=== PATIENT | female | born 1965 | race Caucasian/White ===

== ENCOUNTER 2020-01-16 11:21 | Outpatient (REF) | payer MEDICAID, SELFPAY ==
--- NOTE | 2020-01-16 | US_ITS ---
EXAMINATION: US DIAGNOSTIC ULTRASOUND BREAST, LEFT CLINICAL INFORMATION: Probable benign hypoechoic nodule anterior 11:00 left breast, likely complicated cyst with apocrine metaplasia. COMPARISON: Mammography 05/18/2019, ultrasound left breast 05/27/2019. TECHNIQUE: Targeted ultrasound left breast is performed using grayscale imaging and color Doppler without and with harmonics. Imaging performed at the anterior upper inner breast. FINDINGS: The small hypoechoic nodule with circumscribed margins is slightly decreased in size currently measuring 6 x 5 x 4 mm. Prior measurements are 7 x 7 x 6 mm. Again, there is some peripheral internal echogenicity without peripheral and internal color flow. There is no posterior increased or decreased through transmission of sound. The appearance is suggestive of cyst with apocrine metaplasia. There is no interval suspicious change. No new finding on targeted ultrasound. Results are discussed with the patient at time of visit. Management plan is for targeted left breast ultrasound at time of annual bilateral mammography, due in 6 months. IMPRESSION: Probable benign complicated cyst with apocrine metaplasia anterior 11:00 position slightly decreased in size. No associated color flow. ASSESSMENT: BI-RADS 3: Probably Benign RECOMMENDATION: Targeted left breast ultrasound at time of annual bilateral mammography, due in 6 months. This patient's information was entered into a reminder system with a target due date for their next mammogram.
== END 2020-01-16 11:22 | disposition home or self-care (01) ==
LOC: HO.MAMMO 11:21
PROVIDERS: PCP Internal Medicine; Visit Provider Internal Medicine
DX: R92.8 Other abnormal and inconclusive findings on diagnostic imaging of breast (principal)
CPT/HCPCS: 76642

== ENCOUNTER 2020-07-12 12:53 | Outpatient (REF) | payer MEDICAID, SELFPAY ==
--- NOTE | ~2020-07-12 | MM_ITS ---
EXAMINATION: MM DIAGNOSTIC DIGITAL BREAST TOMOSYNTHESIS, BILATERAL TARGETED LEFT BREAST ULTRASOUND CLINICAL INFORMATION: Six-month follow up left breast density. The lifetime risk of breast cancer based on the Tyrer-Cuzick Model is 8.8%. COMPARISON: Mammography: 01/16/2020 and studies dating back to 05/18/2019. TECHNIQUE: Digital breast tomosynthesis is performed in both the craniocaudal and mediolateral oblique views along with computer-aided detection (CAD). Synthesized 2D images are generated from the tomosynthesis. Targeted left breast ultrasound. FINDINGS: There are scattered areas of fibroglandular density (ACR BI-RADS breast composition Category b). There is a stable parenchymal pattern to the right breast with no new abnormal dominant masses or new suspicious grouping of microcalcifications identified. There are multiple circumscribed densities seen about the anterior and lateral aspects of the left breast with previously noted well-circumscribed nodule anterior aspect measuring approximately 9 x 8 mm in size. Targeted left breast ultrasound was performed. The previously noted circumscribed heterogeneous structure with appearance of complex cyst is again seen 11 o'clock position 5 cm from nipple measuring approximately 8 x 8 x 7 mm in size where previously after remeasuring in the same dimensions it is seen to measure approximately 8 x 7 x 7 mm in size. The lesion is avascular without distal sound shadowing and no significant sound enhancement. There is slight change in distribution of soft tissue density/debris within the lesion compared to previous study. There are a few simple and mildly complex cysts present about the lateral and upper outer quadrant. At the 2 o'clock position 5 cm from nipple there is a 6 x 6 mm hypoechoic circumscribed lesion which was not imaged on prior study. This is avascular with question mild posterior enhancement and no sound shadowing. This likely represents a complex cyst or solid structure such as a fibroadenoma. Six-month follow-up ultrasound examination of the left breast is recommended to ensure stability. Results are provided to the patient at time of visit by the technologist. MM/MM tomosynthesis diagnostic BI IMPRESSION: No significant change of left breast complex cystic lesion 11 o'clock position 5 cm from nipple. Multiple simple or minimally complex cysts about the superior and lateral aspect of the left breast. At the 2 o'clock position 5 cm from the nipple there is either a complex cyst or solid structure such as fibroadenoma which is likely benign in characteristics. ASSESSMENT: BI-RADS 3: Probably Benign. RECOMMENDATION: Diagnostic left breast ultrasound in 6 months. This patient's information was entered into a reminder system with a target due date for their next mammogram.
--- NOTE | ~2020-07-12 | US_ITS ---
EXAMINATION: US DIAGNOSTIC ULTRASOUND BREAST, LEFT CLINICAL INFORMATION: Circumscribed densities left breast.. COMPARISON: January 16, 2020 and May 27, 2019. TECHNIQUE: Ultrasound of the breast is performed with real-time kolb scale imaging and color Doppler. FINDINGS: Targeted left breast ultrasound was performed. The previously noted circumscribed heterogeneous structure with appearance of complex cyst again seen 11:00 position 5 cm from nipple is an approximately 8 x 8 x 7 mm in size where previously after remeasuring the same dimensions is seen to measure approximately 8 x 7 x 7 mm in size. The lesion is avascular without distal sound shadowing and no significant sound enhancement. There is slight change in distribution of soft tissue density/debris within the lesion compared to previous study. There are a few cysts and mildly complex cysts present about the lateral and upper outer quadrant at the 2:00 position 5 cm from nipple there is a 6 x 6 mm hypoechoic circumscribed lesion which was not imaged on prior study. This is avascular with question mild posterior enhancement and no sound shadowing. This likely represents a complex cyst or solid structure such as a fibroadenoma.. 6 month follow-up ultrasound examination of the left breast is recommended to ensure stability. Results are provided to the patient at time of visit by the technologist. US/US breast LT limited IMPRESSION: No significant change of left breast complex cyst lesion 11:00 position 5 cm from nipple. Multiple simple or minimally complex cysts about the superior lateral aspect of the left breast. At the 2:00 position 5 cm from the nipple there is either a complex cyst or solid structure such as a fibroadenoma which is likely benign in characteristics. ASSESSMENT: BI-RADS 3: Probably Benign RECOMMENDATION: Diagnostic left breast ultrasound in 6 months
== END 2020-07-12 12:54 | disposition home or self-care (01) ==
LOC: HO.MAMMO 12:53
PROVIDERS: Visit Provider Internal Medicine
DX: N60.02 Solitary cyst of left breast (principal)
CPT/HCPCS: 76642; 77062; 77066

== ENCOUNTER 2021-01-11 13:16 | Outpatient (REF) | payer OTHER, SELFPAY ==
--- NOTE | ~2021-01-11 | US_ITS ---
EXAMINATION: US DIAGNOSTIC ULTRASOUND BREAST, LEFT CLINICAL INFORMATION: Complicated cysts for follow-up imaging left o'clock left breast. COMPARISON: Mammography 05/18/2019 and 07/12/2020; targeted left breast ultrasound 05/27/2019, 01/16/2020, 9 07/12/2020. TECHNIQUE: Ultrasound left breast is targeted to the anterior superior breast. Grayscale imaging and color Doppler are performed without and with harmonics. FINDINGS: The complicated cyst for follow-up left 11:00 position 5 cm from nipple is similar in size, measuring under 1 cm. There is focal peripheral geographic internal echogenicity. The cyst wall is poorly defined at the interface with the internal echogenicity and with question of extracystic extension. There is no posterior shadowing and no peripheral or internal color flow. No flow on power doppler. Nevertheless, the features may suggest papilloma. Ultrasound-guided core sampling is therefore recommended. Results are discussed with the patient at time of visit, using an deaf interpreter. Results and recommendation are called to medical transcription supervisor (Ailin) for provider Cristina Medrano CNP on 01/11/2021. US/US breast LT limited IMPRESSION: Although the complicated cyst is similar in size and there is no associated color flow, there is peripheral geographic internal echogenicity with ill-defined interface with the cyst wall. The possibility of papilloma cannot be excluded. ASSESSMENT: BI-RADS 4: Suspicious (subcategory 4A: Low suspicion for malignancy) RECOMMENDATION: Ultrasound-guided core sampling complicated cyst left breast anterior 11:00 position. This patient's information was entered into a reminder system with a target due date for their next mammogram.
== END 2021-01-11 13:17 | disposition home or self-care (01) ==
LOC: HO.MAMMO 13:16
PROVIDERS: PCP Nurse Practitioner Family; Visit Provider Nurse Practitioner Family
DX: N60.02 Solitary cyst of left breast (principal)
CPT/HCPCS: 76642

== ENCOUNTER 2021-02-06 09:27 | Outpatient (REF) | payer OTHER, SELFPAY ==
--- NOTE | ~2021-02-06 | MM_ITS ---
PROCEDURE: US GUIDED BREAST BIOPSY, LEFT CLINICAL INFORMATION: Complicated cyst COMPARISON: January 11, 2021 and July 12, 2020 as well as dating back to May 27, 2019 PROCEDURAL DETAILS: The details of the procedure, as well as the risks, benefits, and alternatives to the procedure were explained to the patient in detail and all of her questions were answered, after which written informed consent was obtained. Site and side were confirmed. Prior to the procedure, sonography revealed a complex cyst with soft tissue component which appears to extend deep to the cyst 11:00 position 5 cm from the nipple.. A time-out was performed, the lesion intended for biopsy was targeted, and the skin of the left breast was then prepped and draped in the usual sterile fashion. Using sonographic guidance, sterile technique, and 1% lidocaine without epinephrine for local anesthesia, multiple automated core biopsies were obtained through the targeted area with a 14G spring loaded Achieve core biopsy device. There was real-time confirmation of appropriate needle passage. Sampling was documented. At the completion of tissue sampling, a single butterfly-shaped metallic clip was deposited at the biopsy site. There was no evidence of immediate complication. SPECIMEN: An appropriate sample was obtained. DIGITAL POST-PROCEDURE MAMMOGRAPHY: Breast density: The tissue contains scattered areas of fibroglandular density. BI-RADS version 5, category B. There are no new mammographic findings demonstrated. The postprocedure 2-view direct digital mammogram reveals satisfactory positioning of the biopsy clip. The patient tolerated the procedure well and, after assuring adequate hemostasis, was discharged in good condition after reviewing postbiopsy breast care instructions. Final pathology results are pending. MM/MM diagnostic mammo unilat LT IMPRESSION: 1. No immediate complication from ultrasound-guided percutaneous biopsy left breast. 2. Ultrasound was used to localize and guide marker clip placement. 3. The 2-view direct digital postprocedure mammogram reveals satisfactory positioning of the biopsy clip. 4. Final pathology results are pending. A separate report with final recommendations will be issued once these results are made available.
[2021-02-06] MEDS: Lidocaine HCl 1 % 20 ML VIAL 6 ML SUBCUT (10:54)
== END 2021-02-06 09:28 | disposition home or self-care (01) ==
LOC: HO.MAMMO 09:27
PROVIDERS: Visit Provider Surgery
DX: N60.02 Solitary cyst of left breast (principal)
CPT/HCPCS: 19083; 77065; 88305; 99202

== ENCOUNTER → 2021-02-13 15:00 | Outpatient (BNVA) | payer OTHER, SELFPAY | PROVIDERS: PCP Nurse Practitioner Family; Referring Provider Nurse Practitioner Family; Visit Provider Surgery | DX: N60.02 Solitary cyst of left breast (principal) | CPT/HCPCS: 99212 ==

== ENCOUNTER 2022-08-09 08:07 | Outpatient (REF) | payer OTHER, SELFPAY ==
--- NOTE | ~2022-08-09 | MM_ITS ---
EXAMINATION: MM SCREENING DIGITAL BREAST TOMOSYNTHESIS, BILATERAL CLINICAL INFORMATION: Screening. Asymptomatic. Benign left breast ultrasound-guided biopsy 02/06/2021 (benign breast tissue with ruptured cyst and associated stromal inflammatory changes; background fibrocystic changes; usual ductal hyperplasia; columnar cell change; microcalcifications; no atypia or malignancy). The lifetime risk of breast cancer based on the Tyrer-Cuzick Model is 7%. COMPARISON: Mammography: 02/06/2021, 07/12/2020, 05/18/2019 (new baseline); ultrasound-guided left breast biopsy 02/06/2021, left breast ultrasound 01/11/2021, 07/12/2020, 01/16/2020, 05/27/2019. TECHNIQUE: Digital breast tomosynthesis is performed in both the craniocaudal and mediolateral oblique views along with computer-aided detection (CAD). Synthesized 2D images are generated from the tomosynthesis. FINDINGS: There are scattered areas of fibroglandular density (ACR BI-RADS breast composition Category b). There is denser breast tissue composition in the bilateral anterior breasts similar to prior studies. There are no significant masses, abnormal calcifications, or other abnormalities. Parenchymal pattern is similar to prior studies. There is no developing density or architectural abnormality. There is a biopsy clip marker anterior 11:00 left breast. The axilla and skin contours are unremarkable. No significant changes. MM/MM tomosynthesis screening BI IMPRESSION: No mammographic evidence of malignancy. ASSESSMENT: BI-RADS 2: Benign RECOMMENDATION: Routine annual mammography screening. This patient's information was entered into a reminder system with a target due date for their next mammogram.
== END 2022-08-09 08:08 | disposition home or self-care (01) ==
LOC: HO.MAMMO 08:07
PROVIDERS: PCP Internal Medicine; Visit Provider Internal Medicine
DX: Z12.31 Encounter for screening mammogram for malignant neoplasm of breast (principal)
CPT/HCPCS: 77063; 77067

== ENCOUNTER 2023-09-11 09:04 | Outpatient (REF) | payer OTHER, SELFPAY ==
--- NOTE | ~2023-09-11 | MM_ITS ---
EXAMINATION: MM SCREENING DIGITAL BREAST TOMOSYNTHESIS, BILATERAL CLINICAL INFORMATION: Screening. Asymptomatic. COMPARISON: Mammography: This study is compared with prior exams dating back to 2020. TECHNIQUE: Digital breast tomosynthesis is performed in both the craniocaudal and mediolateral oblique views along with computer-aided detection (CAD). Synthesized 2D images are generated from the tomosynthesis. FINDINGS: There are scattered areas of fibroglandular density (ACR BI-RADS breast composition Category b). There are no significant masses, abnormal calcifications, or other abnormalities. There is a biopsy tissue marker in the left breast. MM/MM tomosynthesis screening BI IMPRESSION: No mammographic evidence of malignancy. ASSESSMENT: BI-RADS BI-RADS 2 - Benign Findings RECOMMENDATION: Routine annual mammography screening. 1 year F/U This examination should not preclude the clinical evaluation of a suspicious palpable abnormality. This patient's information was entered into a reminder system with a target due date for their next mammogram.
== END 2023-09-11 09:05 | disposition home or self-care (01) ==
LOC: HO.MAMMO 09:04
PROVIDERS: PCP Internal Medicine; Visit Provider Internal Medicine
DX: Z12.31 Encounter for screening mammogram for malignant neoplasm of breast (principal)
CPT/HCPCS: 77063; 77067

== ENCOUNTER → 2023-09-11 09:15 | Outpatient (BNV) | payer OTHER, SELFPAY | PROVIDERS: PCP Internal Medicine; Visit Provider Radiology Diagnostic Radiology | DX: Z12.31 Encounter for screening mammogram for malignant neoplasm of breast (principal) | CPT/HCPCS: 77063; 77067 ==

== ENCOUNTER 2024-10-26 08:49 | Outpatient (REF) | payer OTHER, SELFPAY ==
--- OUTSIDE RECORDS SUMMARY | 2024-10-26 09:00 | XMS_ITS | Clinical Summary ---
Author Organization [facility] Address [address] [place] [address] Care Team Providers Care Motorcycle Technician Name Role Phone Luz Marina Solorzano MD Primary Care Provider + Allergies No known active allergies Medications Medication Sig Dispensed Refills Start Date End Date Status NIFEdipine (PROCARDIA XL) 30 MG 24 hr tablet Take 1 tablet (30 mg total) by mouth daily. 0 Active levothyroxine (SYNTHROID, LEVOXYL) tablet 50 mcg Take 1 tablet (50 mcg total) by mouth every morning on an empty stomach. 0 Active fluticasone (FLONASE) 50 MCG/ACT nasal spray spray/apply 1 spray in each nostril daily. 0 Active aspirin EC 81 MG tablet Take 1 tablet (81 mg total) by mouth daily. 0 Active atorvastatin (LIPITOR) tablet 20 mg Take 1 tablet (20 mg total) by mouth daily. 0 Active cholecalciferol (VITAMIN D3) 1000 units tablet Take 1 tablet (1,000 Units total) by mouth daily. 0 Active gabapentin (NEURONTIN) 100 MG capsule Take 8 capsules (800 mg total) by mouth 3 (three) times a day. 0 Active fexofenadine (HM FEXOFENADINE HCL) 180 MG tablet Take 1 tablet (180 mg total) by mouth daily. 0 Active simvastatin (ZOCOR) tablet 20 mg Take 1 tablet (20 mg total) by mouth every night at bedtime. 0 Active omeprazole (PriLOSEC) 20 MG capsule Take 1 capsule (20 mg total) by mouth daily. 0 Active amLODIPine (NORVASC) tablet 5 mg Take 1 tablet (5 mg total) by mouth daily. 0 Active valsartan (DIOVAN) tablet 160 mg Take 1 tablet (160 mg total) by mouth daily. 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 Social History Tobacco Use Types Packs/Day Years Used Date Smoking Tobacco: Never Smokeless Tobacco: Never Tobacco Cessation:Counseling Given: Not Answered Alcohol Use Standard Drinks/Week Comments No 0 (1 standard drink = 0.6 oz pur e alcohol) Sex and Gender Information Value Date Recorded Sex Assigned at Female 04/23/2023 2:35 PM EST Gender Identity Not on file Sexual Orientation Not on file Job Start Date Occupation Industry Not on file Not on file Not on file Last Filed Vital Signs Vital Sign Reading Time Taken Comments Blood Pressure 145/62 08/19/2023 9:02 AM EDT Pulse 71 08/19/2023 9:02 AM EDT Temperature 36.5 C (97.7 F) 08/19/2023 9:02 AM EDT Respiratory Rate - - Oxygen Saturation 97% 08/19/2023 9:02 AM EDT Inhaled Oxygen Concentration - - Weight 137 kg (302 lb) 08/19/2023 9:02 AM EDT Height 172.7 cm (5' 8 ) 08/19/2023 9:02 AM EDT Body Mass Index 45.92 08/19/2023 9:02 AM EDT Plan of Treatment Health Maintenance Due Date Last Done Comments Hepatitis C Screening 1965 Depression Screening 1976 Preventative Health Evaluation 02/13/1982 DTap / Tdap / Td (1 - Tdap) 02/13/1983 Cervical Cancer Screening (Pap Smear) 02/13/1985 Colon Cancer Screening (Colonoscopy) 02/13/2009 Breast Cancer Screening (Mammogram) 02/13/2014 COVID-19 Vaccine ( season) 2023 06/21/2021, 09/02/2020, 08/12/2020 RSV Adult > 60+ Yrs or (1 - Risk 60-74 years 1-dose series) 2024 Influenza Vaccine (#1) 2024 4, 05/03/2021, 05/26/2019, Additional history exists Shingrix-Zoster Vaccine Completed 05/26/2019, 03/22 Pneumococcal Vaccine Completed 10/13/2022 Hepatitis B Vaccines Aged Out No long er eligible based on patient's age to complete this topic RSV Ped < 20 months Aged Out No longe r eligible based on patient's age to complete this topic Care Teams Motorcycle Technician Relationship Specialty Start Date End Date Luz Marina Solorzano MD [address] [place] [id number] PCP - General Internal Medicine 04/23/23
--- OUTSIDE RECORDS SUMMARY | 2024-10-26 09:00 | XMS_ITS | Encounter Summary ---
Author Organization [email or web address] Address [address] [place] [address] [address] [place] [address] Care Team Providers Care Design Manager Name Role Phone Unavailable Primary Care Provider Unavailabl e Reason for Visit * Reason Comments Med Refill Encounter Details Date Type Department Care Team (Late st Contact Info) Description 05/22/2024 Refill [facility] [address] [place] [address] Eliseo Warren MD [address] [place] [address] Chronic rhinitis Social History Tobacco Use Types Packs/Day Years Used Date Smoking Tobacco: Never Assessed Comments Unknown Sex and Gender Information Value Date Recorded Sex Assigned at Female 02/10/2022 10:30 AM EDT Legal Sex Female 10:30 AM EDT Gender Identity Not on file Sexual Orientation Not on file documented as of this encounter Plan of Treatment Not on file documented as of this encounter Visit Diagnoses Diagnosis Chronic rhinitis documented in this encounter
--- OUTSIDE RECORDS SUMMARY | 2024-10-26 09:00 | XMS_ITS | Clinical Summary ---
Author Organization [facility] [address] [facility] Address [address] [place] [address] Phone Care Team Providers Care Recreation Program Coordinator Name Role Phone Luz Marina Solorzano MD Primary Care Provider + Allergies No known active allergies Medications dicyclomine (BENTYL) 10 mg capsule TAKE 1 CAPSULE BY MOUTH 3 TIMES A DAY WITH MEALS 270 capsule 1 4 Active Ozempic 0.25 mg or 0.5 mg (2 mg/3 mL) injection pen 0.5 MG SUBCUTANEOUS INJECTION EVERY WEEK,INSTR:ROTAT E INJECTION SITES 4 Active aspirin 81 mg EC tablet Take 1 tablet (81 mg total) by mouth 1 (one) time each day. Active atorvastatin (LIPITOR) 20 mg tablet Take 1 tablet (20 mg total) by mouth 1 (one) time each day. Active cholecalciferol (VITAMIN D-3) 25 mcg (1,000 unit) tablet Take 1 tablet (1,000 Units total) by mouth 1 (one) time each day. Active fexofenadine (VITO) 180 mg tablet Take 1 tablet (180 mg total) by mouth 1 (one) time each day. Active fluticasone propionate (FLONASE) 50 mcg/actuation nasal spray Administer 1 spray into each nostril 1 (one) time each day. Active gabapentin (NEURONTIN) 100 mg capsule Take 1 capsule (100 mg total) by mouth 3 (three) times a day. Active levothyroxine (SYNTHROID, LEVOTHROID) 50 mcg tablet Take 1 tablet (50 mcg total) by mouth every morning on an empty stomach. Active NIFEdipine XL (PROCARDIA XL) 30 mg 24 hr tablet Take 1 tablet (30 mg total) by mouth 1 (one) time each day. Active omeprazole (PriLOSEC) [address] capsule Take 1 capsule (20 mg total) by mouth 1 (one) time each day. Active simvastatin (ZOCOR) 20 mg tablet Take 1 tablet (20 mg total) by mouth at bedtime. Active amLODIPine (NORVASC) 5 mg tablet Take 1 tablet (5 mg total) by mouth 1 (one) time each day. Active valsartan (DIOVAN) 160 mg tablet Take 1 tablet (160 mg total) by mouth 1 (one) time each day. Active metFORMIN XR (GLUCOPHAGE-XR) 500 mg 24 hr tablet Take 1 tablet (500 mg total) by mouth at bedtime. Active Active Problems Problem Noted Date Diagnosed Date Right upper quadrant pain 03/23/2024 Epigastric pain 03/23/2024 Calculus of gallbladder with out cholecystitis without obstruction 03/23/2024 Fatty liver 03/23/2024 Diabetes mellitus ([facility] V24, [facility] V28) 02/2024 Hypothyroid 03/23/2024 Other hyperlipidemia 03/23/2024 Recurrent sinus infections 06/08/2023 IgA deficiency ([facility] V24, [facility] V28) 2023 Immunizations Name Administration Dates Next Due [email or web address] (ages 12 & older) JERSON S-CoV-2 COVID-19, mRNA, LNP-S, derek-sucrose, preservative free 06/21/2021 [facility] SARS-CoV-2 COVID-19, mRNA, LNP-S, preservative free 06/21/2021,09/02/2020,08/12/2020 Surgical History Surgery Date Site/Laterality Comments THYROID SURGERY PROCEDURE:THYROID SURGERY TUBAL LIGATION PROCEDURE:TUBAL LIGATION Medical History Medical History Date Comments Iron (Fe) deficiency anemia DX:I suleiman (Fe) deficiency anemia Hypertension DX:Hypertension High cholesterol DX:High cholest merrill Social History Tobacco Use Types Packs/Day Years Used Date Smoking Tobacco: Never Smokeless Tobacco: Never Alcohol Use Standard Drinks/Week Comments No 0 (1 standard drink = 0.6 oz pur e alcohol) Comments Unknown Sex and Gender Information Value Date Recorded Sex Assigned at Not on file Legal Sex Female 9:38 AM EST Gender Identity Not on file Sexual Orientation Not on file Obstetrics History Last Filed Vital Signs Vital Sign Reading Time Taken Comments Blood Pressure 145/62 08/19/2023 9:02 AM EDT Sit ting Left arm Pulse 71 08/19/2023 9:02 AM EDT Temperature - - Respiratory Rate - - Oxygen Saturation - - Inhaled Oxygen Concentration - - Weight 130 kg (287 lb) 03/23/2024 8:44 AM EST Height 172.7 cm (5' 8 ) 03/23/2024 8:44 AM EST Body Mass Index 43.64 03/23/2024 8:44 AM EST Plan of Treatment Health Maintenance Due Date Last Done Comments Diabetes: Annual GFR (Glomerular Filtration Rate) 1964 Diabetes: Annual Foot Exam 02/13/1974 Diabetes: Annual Retina Eye Exam 02/13/1974 DTaP,Tdap,and Td Vaccines (1 - Tdap) 02/13/1983 Cervical Cancer Screening: Pap Smear 02/13/1985 Breast Cancer Screening 07/12/2022 07/12/2020 Cholesterol Screening (Lipid Panel) 05/12/2023 Depression Screening 05/12/2023 HIV Screening 05/12/2023 Hepatitis C Screening 05/12/2023 Social Influencers of Health Screening 05/12/2023 COVID-19 Vaccine ( season) 2023 06/21/2021, 06/21/2021, 09/02/2020, Additional history exists RSV Immunization Adult Patients (1 - Risk 60-74 years 1-dose series) 2024 Diabetes: Annual Urine Albumin-Creatinine Ratio (uACR) 03/23/2024 Diabetes: Blood Sugar Control Test (HGBA1C) 03/23/2024 Influenza Vaccine (#1) 2024 , 05/03/2021, 05/26/2019, Additional history exists Colorectal Cancer Screening: Colonoscopy 01/09/2033 01/09/2023, 02/16/2017 Zoster Vaccines Completed 05/26/2019, 03/22/2019 Pneumococcal Vaccine: 50+ Years Completed 10/13/2022 HIB Vaccines Aged Out No longer eligi ble based on patient's age to complete this topic HPV Vaccines Aged Out No longer eligi ble based on patient's age to complete this topic Hepatitis A Vaccines Aged Out No long er eligible based on patient's age to complete this topic Hepatitis B Vaccines Aged Out No long er eligible based on patient's age to complete this topic IPV Vaccines Aged Out No longer eligi ble based on patient's age to complete this topic MMR Vaccines Aged Out No longer eligi ble based on patient's age to complete this topic Meningococcal ACWY Vaccine Aged Out N o longer eligible based on patient's age to complete this topic Meningococcal B Vaccine Aged Out No l onger eligible based on patient's age to complete this topic RSV Immunization Patients Under 20 months Aged Out No longer eligible based on patient's age to complete this topic Varicella Vaccines Aged Out No longer eligible based on patient's age to complete this topic Procedures Procedure Name Priority Date/Time Associated Diagnosis Comments COLONOSCOPY Routine 01/09/2023 12:17 PM EDT from Last 3 Months or Most Recently Relevant to Health Maintenance Results * COLONOSCOPY (01/09/2023 12:17 PM EDT) Anatomical Region Laterality Modality Endoscopy us Historical Provider GI~PROCEDURE ORDERABLES E dited Result - Final from Last 3 Months or Most Recently Relevant to Health Maintenance Insurance [facility] Care Teams Recreation Program Coordinator Relationship Specialty Start Date End Date Luz Marina Solorzano MD [address] [place] [phone] PCP - General 04/23/23
== END 2024-10-26 08:50 | disposition home or self-care (01) ==
LOC: HO.MAMMO 08:49
PROVIDERS: PCP Internal Medicine; Visit Provider Internal Medicine
DX: Z12.31 Encounter for screening mammogram for malignant neoplasm of breast (principal)
CPT/HCPCS: 77063; 77067

== ENCOUNTER → 2024-10-26 09:00 | Outpatient (BNV) | payer OTHER, SELFPAY | PROVIDERS: PCP Internal Medicine; Visit Provider Radiology Body Imaging | DX: Z12.31 Encounter for screening mammogram for malignant neoplasm of breast (principal) | CPT/HCPCS: 77063; 77067 ==

== ENCOUNTER 2024-12-14 12:46 | Outpatient (REF) | payer OTHER, SELFPAY ==
--- NOTE | ~2024-12-14 | US_ITS ---
EXAMINATION: MM DIAGNOSTIC DIGITAL BREAST TOMOSYNTHESIS, RIGHT Limited right breast ultrasound. CLINICAL INFORMATION: Call back from screening for focal asymmetry in the upper central to slightly inner right breast. COMPARISON: Mammography: Priors on PACS. TECHNIQUE: Digital breast tomosynthesis is performed in both the craniocaudal and mediolateral oblique views along with computer-aided detection (CAD). Synthesized 2D images are generated from the tomosynthesis. FINDINGS: There are scattered areas of fibroglandular density (ACR BI-RADS breast composition Category b). Focal asymmetry in the upper central slightly inner breast middle to posterior depth persist on additional imaging projections with associated architectural distortion. No suspicious calcifications or other abnormal findings. Targeted color Doppler ultrasound scanning from 10-2 o'clock demonstrates normal fibronodular breast tissue. There is no sonographic abnormal finding to correlate with the focal asymmetry with associated distortion on mammography. US/US breast RT limited mamm only IMPRESSION: Focal asymmetry in the upper central slightly inner breast with associated architectural distortion without sonographic correlate. Recommend histology with stereotactic core needle biopsy at this time. The findings and recommendations were discussed with the patient the procedure will be scheduled. ASSESSMENT: BI-RADS BI-RADS 4 - Suspicious finding RECOMMENDATION: Biopsy recommended Results were discussed with the patient at time of visit. This patient's information was entered into a reminder system with a target due date for their next mammogram. Electronically signed by: Bethany Puckett DO 12/14/2024 03:28 PM EDT
--- OUTSIDE RECORDS SUMMARY | 2024-12-14 15:11 | XMS_ITS | Clinical Summary ---
Author Organization [employer] Address [address] [facility] 7t [place] [address] Care Team Providers Care Family Services Specialist Name Role Phone Unavailable Primary Care Provider Unavailabl e Medications fluticasone (Flonase) 50 MCG/ACT nasal sprayIndication s:Chronic rhinitis ADMINISTER 1 SPRAY INTO EACH NOSTRIL IN MORNING:SHAKE GENTLY: BEFORE FIRST USE, PRIME PUMP. AFTER USE, CLEAN TIP AND REPLACE CAP. 48 mL 3 3 Active pantoprazole (ProtoNix) 40 MG EC tablet TAKE 1 TABLET (40 MG) BY MOUTH IN THE MORNING DO NOT CRUSH, CHEW, OR SPLIT 90 tablet 1 3 Active Social History Tobacco Use Types Packs/Day Years Used Date Smoking Tobacco: Never Assessed Comments Unknown Sex and Gender Information Value Date Recorded Sex Assigned at Female 02/10/2022 10:30 AM EDT Legal Sex Female 10:30 AM EDT Gender Identity Not on file Sexual Orientation Not on file Last Filed Vital Signs Vital Sign Reading Time Taken Comments Blood Pressure 150/96 06/06/2019 12:02 AM EST Pulse 64 06/06/2019 12:02 AM EST Temperature - - Respiratory Rate - - Oxygen Saturation - - Inhaled Oxygen Concentration - - Weight 132 kg (290 lb 3.2 oz) 06/06/2019 12:02 A M EST Height 172.7 cm (5' 8 ) 06/06/2019 12:02 AM EST Body Mass Index 44.12 06/06/2019 12:02 AM EST Plan of Treatment Health Maintenance Due Date Last Done Comments CT Colonography 1964 Colonoscopy 1964 Colorectal Cancer Screening 1964 Depression Screening 1964 FIT DNA/Cologuard 1964 FIT 1964 FOBT 1964 HIV Screening 1964 Lipid Panel 1964 SDOH Screening 1964 Sigmoidoscopy 1964 Disability Screening 1964 Alcohol/Substance Use Screening 1976 Tobacco Screening 1976 Hepatitis C Screening 02/13/1982 Hepatitis A Vaccines (1 of 2 - Risk 2-dose series) 02/13/1983 Pap Smear 02/13/1985 Cervical Cancer Screening 02/13/1994 HPV/Cotest 02/13/1994 Mammogram 07/12/2022 07/12/2020, 02/0 09/2019, 05/19/2019 COVID-19 Vaccine ( season) 2023 06/21/2021, 09/02/2020, 08/12/2020 Hepatitis B Vaccines (1 of 3 - Risk 3-dose series) 2024 RSV Patients and Patients Aged 60 years or older (1 - Risk 60-74 years 1-dose series) 2024 Influenza Vaccine (#1) 2024 , 04/20/2023, 05/03/2021, Additional history exists DTaP/Tdap/Td Vaccines (2 - Td or Tdap) 07/03/2026 07/03/2016 Zoster Vaccines Completed 05/26/2019, 03/22/2019 Pneumococcal Vaccine: [...] patient's age to complete this topic Meningococcal Vaccine Aged Out No mary pantera eligible based on patient's age to complete this topic RSV under 20 months Aged Out No longe r eligible based on patient's age to complete this topic Rotavirus Vaccines Aged Out No longer eligible based on patient's age to complete this topic Procedures Procedure Name Priority Date/Time Associated Diagnosis Comments MAMMOGRAM GENERIC Routine 07/12/2020 1:0 0 PM EDT from Last 3 Months or Most Recently Relevant to Health Maintenance Results * Mammography Report 1 (07/12/2020 1:00 PM EDT) Anatomical Region Laterality Modality Breast Bilateral Mammography 07/12/2020 1:00 PM EDT Narrative 07/16/2020 2:33 PM EDT Refer to the Notes tab for result details [facility] Procedure: Mammography Report 1 Procedure Note Provider, MD Gabe - 07/05/2022 Refer to the Notes tab for result details [facility] Procedure: Mammography Report 1 Eliseo Terrell MD IMG BI PROCEDURES Final Result from Last 3 Months or Most Recently Relevant to Health Maintenance [place] [address] [address] C3
--- OUTSIDE RECORDS SUMMARY | 2024-12-14 15:11 | XMS_ITS | Clinical Summary ---
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[facility] V24, [facility] V28) 2023 Immunizations Name Administration Dates Next Due [employer] (ages 12 & older) JERSON S-CoV-2 COVID-19, mRNA, LNP-S, derek-sucrose, preservative free 06/21/2021 [facility] SARS-CoV-2 COVID-19, mRNA, LNP-S, preservative free [...] 07/12/2022 07/12/2020 Cholesterol Screening (Lipid Panel) 05/12/2023 HIV Screening 05/12/2023 Hepatitis C Screening 05/12/2023 Social Influencers of Health Screening 05/12/2023 COVID-19 Vaccine ( season) 2023 06/21/2021, 06/21/2021, 09/02/2020, Additional history exists RSV Immunization Adult Patients (1 - Risk 60-74 years 1-dose series) 2024 Diabetes: Annual Urine Albumin-Creatinine Ratio (uACR) 03/23/2024 Diabetes: Blood Sugar Control Test (HGBA1C) 03/23/2024 Depression Screening 04/13/2024 Influenza Vaccine (#1) 2024 , 05/03/2021, 05/26/2019, [...] Most Recently Relevant to Health Maintenance Insurance [facility] Care Teams Pizza Cook Relationship Specialty Start Date End Date Luz Marina Solorzano MD [address] [place] [phone] PCP - General 04/23/23
--- OUTSIDE RECORDS SUMMARY | 2024-12-14 15:11 | XMS_ITS | Encounter Summary ---
Author Organization [employer] Address [address] [place] [address] [address] [place] [address] Care Team Providers Care Spectrographer Name Role Phone Unavailable Primary Care Provider Unavailabl e Reason for Visit * Reason Comments Med Refill Encounter Details Date Type Department Care Team (Late st Contact Info) Description 10/31/2023 Refill [facility] MED & PEDS [address] [place] [address] Eliseo Warren MD [address] [place] [address] Chronic rhinitis Social History Tobacco Use Types [...]
--- OUTSIDE RECORDS SUMMARY | 2024-12-14 15:11 | XMS_ITS | Encounter Summary ---
Author Organization [employer] Address [address] [place] [address] 7 [place] [address] Care Team Providers Care Quality Assurance Qa Lab Analyst Name Role Phone Unavailable Primary Care Provider Unavailabl e Reason for Visit * Reason Comments Med Refill Encounter Details Date Type Department Care Team (Late st Contact Info) Description 05/22/2024 Refill [facility] CHC MED & PEDS [address] [place] [address] Eliseo Warren MD [address] [place] [address] Chronic rhinitis Social History Tobacco Use Types [...]
--- OUTSIDE RECORDS SUMMARY | 2024-12-14 15:11 | XMS_ITS | Encounter Summary ---
Author Organization [employer] Address [address] [place] [address] 7 [place] [address] Care Team Providers Care Green Building Materials Distributor Name Role Phone Unavailable Primary Care Provider Unavailabl e Reason for Visit * Reason Comments Med Refill Encounter Details Date Type Department Care Team (Late st Contact Info) Description 04/22/2024 Refill [facility] CHC MED & PEDS [address] [place] [address] Eliseo Warren MD [address] [place] [address] Chronic rhinitis Social History Tobacco Use Types [...]
--- OUTSIDE RECORDS SUMMARY | 2024-12-14 15:11 | XMS_ITS | Encounter Summary ---
Author Organization [employer] Address [address] [place] [address] 7 [place] [address] Care Team Providers Care Roll Forger Name Role Phone Unavailable Primary Care Provider Unavailabl e Reason for Visit * Reason Comments Med Refill Encounter Details Date Type Department Care Team (Late st Contact Info) Description 03/09/2024 Refill [facility] CHC MED & PEDS [address] [place] [address] Eliseo Warren MD [address] [place] [address] Chronic rhinitis Social History Tobacco Use Types [...]
--- OUTSIDE RECORDS SUMMARY | 2024-12-14 15:11 | XMS_ITS | Encounter Summary ---
Author Organization [employer] Address [address] [place] [address] 7 [place] [address] Care Team Providers Care Associate Director Of Sales Name Role Phone Unavailable Primary Care Provider Unavailabl e Reason for Visit * Reason Comments Med Refill Encounter Details Date Type Department Care Team (Late st Contact Info) Description 05/13/2023 Refill [facility] CHC MED & PEDS [address] [place] [address] Eliseo Warren MD [address] [place] [address] Social History Tobacco Use Types Packs/Day Years [...] documented as of this encounter Visit Diagnoses Not on filedocumented in this encounter
--- OUTSIDE RECORDS SUMMARY | 2024-12-14 15:11 | XMS_ITS | Clinical Summary ---
Author Organization [facility] Address [address] [place] [address] Care Team Providers Care Bridge Maintainer Name Role Phone Luz Marina Solorzano MD [...] age to complete this topic Care Teams Bridge Maintainer Relationship Specialty Start Date End Date Luz Marina Solorzano MD [address] [place] [phone] PCP - General Internal Medicine 04/23/23
--- OUTSIDE RECORDS SUMMARY | 2024-12-14 15:11 | XMS_ITS | Encounter Summary ---
Author Organization [employer] Address [address] [place] [address] 7 [place] [address] Care Team Providers Care Water/Wastewater Engineer Name Role Phone Eliseo Warren MD Primary Care Prov ider Reason for Visit * Reason Comments Med Refill Encounter Details Date Type Department Care Team (Late st Contact Info) Description 02/20/2023 Refill [facility] CHC MED & PEDS [address] [place] [address] Eliseo Warren MD [address] [place] [address] Social History Tobacco Use Types Packs/Day Years [...] Diagnoses Not on filedocumented in this encounter Care Teams Water/Wastewater Engineer Relationship Specialty Start Date End Date Eliseo Warren MD [address] [place] [address] PCP - General Internal Medicine 08/22/19 04/15/23 documented as of this encounter
--- OUTSIDE RECORDS SUMMARY | 2024-12-14 15:11 | XMS_ITS | Encounter Summary ---
Author Organization [employer] Address [address] [place] [address] [address] [place] [address] Care Team Providers Care Cnc Mill And Lathe Operator Name Role Phone Unavailable Primary Care Provider Unavailabl e Reason for Visit * Reason Comments Med Refill Encounter Details Date Type Department Care Team (Late st Contact Info) Description 09/02/2023 Refill [facility] MED & PEDS [address] [place] [address] Eliseo Warren MD [address] [place] [address] Chronic rhinitis Social History Tobacco Use Types [...]
== END 2024-12-14 12:47 | disposition home or self-care (01) ==
LOC: HO.MAMMO 12:46
PROVIDERS: PCP Internal Medicine; Visit Provider Internal Medicine
DX: R92.8 Other abnormal and inconclusive findings on diagnostic imaging of breast (principal)
CPT/HCPCS: 76642; 77061; 77065

== ENCOUNTER → 2024-12-14 13:00 | Outpatient (BNV) | payer OTHER, SELFPAY | PROVIDERS: PCP Internal Medicine; Visit Provider Internal Medicine | DX: R92.8 Other abnormal and inconclusive findings on diagnostic imaging of breast (principal); R92.321 Mammographic fibroglandular density, right breast | CPT/HCPCS: 76642; 77061; 77065 ==

== ENCOUNTER 2024-12-21 07:51 | Outpatient (REF) | payer OTHER, SELFPAY ==
--- NOTE | ~2024-12-21 | MM_ITS ---
EXAMINATION: STEREOTACTICALLY-GUIDED RIGHT BREAST BIOPSY CLINICAL INFORMATION: Right focal asymmetry with associated architectural distortion upper central breast. COMPARISON: [facility] on PACS. INFORMED CONSENT: After the details of the procedure, as well as the risks (including, but not limited to, bleeding, hematoma formation, and infection), benefits and alternatives (including doing nothing, short-interval follow up, and surgery) to the procedure were explained to the patient in detail and all of her questions were answered, informed written consent was obtained. TECHNIQUE/FINDINGS: A timeout was performed. The lesion intended for biopsy was identified stereotactically and targeted. The skin of the right breast was then cleansed with sterile solution. Using stereotactic guidance, aseptic technique, and 1% lidocaine with and without epinephrine for local anesthesia, a total of 12 cores were obtained through the targeted area with a 9-gauge vacuum-assisted Eviva core biopsy device from a superior approach. At the completion of tissue sampling, a single top hat-shaped metallic clip was deposited at the biopsy site. Adequate sampling was achieved. The postprocedure 2-view direct digital mammogram reveals satisfactory positioning of the biopsy clip. The patient tolerated the procedure well and, after assuring adequate hemostasis, was discharged in good condition after reviewing postbiopsy breast care instructions. Final pathology results are pending. MM/MM stereotactic biopsy RT IMPRESSION: 1. Uncomplicated stereotactically-guided core biopsy of the right breast. The 2-view direct digital postprocedure mammogram reveals satisfactory positioning of the biopsy clip. 2. Final pathology results are pending. A separate report with final recommendations will be issued once these results are made available. Electronically signed by: Bethany Puckett DO 12/21/2024 11:29 AM EDT
--- OUTSIDE RECORDS SUMMARY | 2024-12-21 07:53 | XMS_ITS | Encounter Summary ---
Author Organization [employer] Address [address] [place] [address] [address] [place] [address] Care Team Providers Care Stenographer Print Shop Name Role Phone Unavailable Primary Care Provider Unavailabl e Reason for Visit * Reason Comments Med Refill Encounter Details Date Type Department Care Team (Late st Contact Info) Description 05/22/2024 Refill [facility] CHC MED & PEDS [address] [place] [address] Eliseo Warren MD [address] [place] [address] Chronic rhinitis Social History Tobacco Use Types [...]
--- OUTSIDE RECORDS SUMMARY | 2024-12-21 07:53 | XMS_ITS | Clinical Summary ---
Author Organization [employer] Address [address] [facility] 7t [place] [address] Care Team Providers Care Asian Studies Program Chair Name Role Phone Unavailable Primary Care Provider [...] Screening 02/13/1994 HPV/Cotest 02/13/1994 Mammogram 07/12/2022 07/12/2020, 02/09/2019, 05/19/2019 Hepatitis B Vaccines (1 of 3 - Risk 3-dose series) 2024 RSV Patients and Patients Aged 60 years or older (1 - Risk 60-74 years 1-dose series) 2024 COVID-19 Vaccine (4 - season) 2024 06/21/2021, 09/02/2020, 08/12/2020 Influenza Vaccine (#1) 2024 , 04/20/2023, 05/03/2021, [...] Most Recently Relevant to Health [place] [address] [place] [address] C3
--- OUTSIDE RECORDS SUMMARY | 2024-12-21 07:53 | XMS_ITS | Encounter Summary ---
Author Organization [employer] Address [address] [place] [address] 7 [place] [address] Care Team Providers Care Chemotherapist Name Role Phone Unavailable Primary Care Provider Unavailabl e Reason for Visit * Reason Comments Med Refill Encounter Details Date Type Department Care Team (Late st Contact Info) Description 03/09/2024 Refill [facility] CHC MED & PEDS [address] [place] [address] Eliseo Warren MD [address] [place] [address] Chronic rhinitis Social History Tobacco Use Types [...]
--- OUTSIDE RECORDS SUMMARY | 2024-12-21 07:54 | XMS_ITS | Clinical Summary ---
Author Organization [facility] Address [address] [place] [address] Care Team Providers Care Fpga Engineer Name Role Phone Luz Marina Solorzano MD [...] (Colonoscopy) 02/13/2009 Breast Cancer Screening (Mammogram) 02/13/2014 RSV Adult > 60+ Yrs or (1 - Risk 60-74 years 1-dose series) 2024 COVID-19 Vaccine ( season) 2024 06/21/2021, 09/02/2020, 08/12/2020 Influenza Vaccine (#1) 2024 4, 05/03/2021, 05/26/2019, Additional history exists Shingrix-Zoster Vaccine Completed 05/26/2019, 03/22 Pneumococcal Vaccine Completed 10/13/2022 Hepatitis B Vaccines Aged Out No long er eligible based on patient's age to complete this topic RSV Ped < 20 months Aged Out No longe r eligible based on patient's age to complete this topic Care Teams Fpga Engineer Relationship Specialty Start Date End Date Luz Marina Solorzano MD [address] [place] [phone] PCP - General Internal Medicine 04/23/23
--- OUTSIDE RECORDS SUMMARY | 2024-12-21 07:54 | XMS_ITS | Clinical Summary ---
Author Organization [facility] [address] [facility] Address [address] [place] [address] Phone Care Team Providers Care Mold Stamper And Repairer Name Role Phone Luz Marina Solorzano MD [...] obstruction 03/23/2024 Fatty liver 03/23/2024 Diabetes mellitus ([facility] V24, [facility] V28) 02/2024 Hypothyroid 03/23/2024 Other hyperlipidemia 03/23/2024 Recurrent sinus infections 06/08/2023 IgA deficiency ([facility] V24, [facility] V28) 2023 Immunizations Name Administration Dates Next Due [employer] (ages 12 & older) JERSON S-CoV-2 COVID-19, mRNA, LNP-S, derek-sucrose, preservative free 06/21/2021 [facility] SARS-CoV-2 COVID-19, mRNA, LNP-S, preservative free [...] 05/12/2023 Social Influencers of Health Screening 05/12/2023 RSV Immunization Adult Patients (1 - Risk 60-74 years 1-dose series) 2024 Diabetes: Annual Urine Albumin-Creatinine Ratio (uACR) 03/23/2024 Diabetes: Blood Sugar Control Test (HGBA1C) 03/23/2024 Depression Screening 04/13/2024 COVID-19 Vaccine ( season) 2024 06/21/2021, 06/21/2021, 09/02/2020, Additional history exists Influenza Vaccine (#1) 2024 , 05/03/2021, 05/26/2019, [...] Most Recently Relevant to Health Maintenance Insurance [facility] Care Teams Mold Stamper And Repairer Relationship Specialty Start Date End Date Luz Marina Solorzano MD [address] [place] [phone] PCP - General 04/23/23
--- OUTSIDE RECORDS SUMMARY | 2024-12-21 07:54 | XMS_ITS | Encounter Summary ---
Author Organization [employer] Address [address] [place] [address] [address] [place] [address] Care Team Providers Care Mammal Keeper Name Role Phone Eliseo Warren MD Primary Care Prov ider Reason for Visit * Reason Comments Med Refill Encounter Details Date Type Department Care Team (Late st Contact Info) Description 02/20/2023 Refill [facility] MED & PEDS [address] [place] [address] Eliseo Warren MD [address] [place] [address] Social History Tobacco Use Types Packs/Day Years [...] on filedocumented in this encounter Care Teams Mammal Keeper Relationship Specialty Start Date End Date Eliseo Warren MD [address] [place] [address] PCP - General Internal Medicine 08/22/19 04/15/23 documented as of this encounter
--- OUTSIDE RECORDS SUMMARY | 2024-12-21 07:54 | XMS_ITS | Encounter Summary ---
Author Organization [employer] Address [address] [place] [address] [address] [place] [address] Care Team Providers Care Process Development Associate Name Role Phone Unavailable Primary Care Provider Unavailabl e Reason for Visit * Reason Comments Med Refill Encounter Details Date Type Department Care Team (Late st Contact Info) Description 05/13/2023 Refill [facility] MED & PEDS [address] [place] [address] Eliseo Warren MD [address] [place] [address] Social History Tobacco Use Types Packs/Day Years [...]
--- OUTSIDE RECORDS SUMMARY | 2024-12-21 07:54 | XMS_ITS | Encounter Summary ---
Author Organization [employer] Address [address] [place] [address] [address] [place] [address] Care Team Providers Care Bias Binding Folder Name Role Phone Unavailable Primary Care Provider Unavailabl e Reason for Visit * Reason Comments Med Refill Encounter Details Date Type Department Care Team (Late st Contact Info) Description 09/02/2023 Refill [facility] MED & PEDS [address] [place] [address] Eliseo Warren MD [address] [place] [address] Chronic rhinitis Social History Tobacco Use Types [...]
--- OUTSIDE RECORDS SUMMARY | 2024-12-21 07:54 | XMS_ITS | Encounter Summary ---
Author Organization [employer] Address [address] [place] [address] [address] [place] [address] Care Team Providers Care Topography Technician Name Role Phone Unavailable Primary Care Provider Unavailabl e Reason for Visit * Reason Comments Med Refill Encounter Details Date Type Department Care Team (Late st Contact Info) Description 10/31/2023 Refill [facility] CH[facility] MED & PEDS [address] [place] [address] Eliseo Warren MD [address] [place] [address] Chronic rhinitis Social History Tobacco Use Types [...]
--- OUTSIDE RECORDS SUMMARY | 2024-12-21 07:54 | XMS_ITS | Encounter Summary ---
Author Organization [employer] Address [address] [place] [address] [address] [place] [address] Care Team Providers Care Fire Dispatcher Name Role Phone Unavailable Primary Care Provider Unavailabl e Reason for Visit * Reason Comments Med Refill Encounter Details Date Type Department Care Team (Late st Contact Info) Description 04/22/2024 Refill [facility] CH[facility] MED & PEDS [address] [place] [address] Eliseo Warren MD [address] [place] [address] Chronic rhinitis Social History Tobacco Use Types [...]
[2024-12-21] MEDS: Lidocaine HCl 1 % 20 ML VIAL 5 ML SUBCUT (10:00)
[2024-12-21] MEDS: Lidocaine HCl 1%/Epi 1:100,000 10 ML VIAL 16 ML SUBCUT (10:03)
== END 2024-12-21 07:52 | disposition home or self-care (01) ==
LOC: HO.MAMMO 07:51
PROVIDERS: PCP Internal Medicine; Visit Provider Internal Medicine
DX: Z12.31 Encounter for screening mammogram for malignant neoplasm of breast (principal); R92.8 Other abnormal and inconclusive findings on diagnostic imaging of breast
CPT/HCPCS: 19081; 88305; A4648; J2003; J2004

== ENCOUNTER → 2024-12-21 08:00 | Outpatient (BNV) | payer OTHER, SELFPAY | PROVIDERS: PCP Internal Medicine; Visit Provider Internal Medicine | DX: R92.8 Other abnormal and inconclusive findings on diagnostic imaging of breast (principal) | CPT/HCPCS: 19081; 77065 ==